=== PATIENT | male | born 1960 | race Caucasian/White ===

== ENCOUNTER 2017-08-26 17:57 | Emergency (ER) | payer MEDICARE, OTHER ==
[~2017-08-26] VITALS: Ht 177.8 cm; Wt 103.0 kg
[~2017-08-26 17:57] MED LIST: ACET325 PO; ADDE10 PO; ATOR20TA PO; CLON1TAB PO; DEPA125T PO; DULO20 PO; IBUP400T20 PO; LAMO150 PO; PRAZ1 PO; PROP40TA3 PO
[2017-08-26 18:00] VITALS: BP 176/88; PULSE 94; RESP 16; TEMP 98.6; O2SAT 96
[2017-08-26] MEDS ORDERED: CLON1 PO (18:22)
[2017-08-26] MEDS ORDERED: AMLO5TAB2 PO (18:22)
[2017-08-26] MEDS ORDERED: LAMO150 PO (18:22)
[2017-08-26] MEDS ORDERED: ATOR40TA16 PO (18:22)
[2017-08-26] MEDS ORDERED: LURA20TA PO (18:22)
[2017-08-26] MEDS ORDERED: PRAZ2CAP PO (18:22)
[2017-08-26] MEDS ORDERED: DULO20 PO (18:22)
[2017-08-26] MEDS ORDERED: GABA100C4 PO (18:22)
[2017-08-26] MEDS ORDERED: ADDE10XR PO (18:22)
--- NOTE | 2017-08-26 18:41 | RADRPT ---
EXAM DATE/TIME: 08/26/2017 18:17 [place] COMPARISON: No previous studies available for comparison. INDICATIONS : Pain in left hand after a fusion juncture grinder kicked back and hit hand. Pain is between 1st and 2nd metacarpals. MEDICAL HISTORY : None. SURGICAL HISTORY : None. ENCOUNTER: Initial ACUITY: 1 day PAIN SCORE: 2/10 LOCATION: Left hand. FINDINGS: Three view examination of the left hand demonstrates no soft tissue swelling, dislocation, or fractur e. The carpal bones appear intact. The interphalangeal and metacarpophalangeal joints are intact. Bony mineralization is normal. CONCLUSION: Unremarkable examination of the left hand. Cal Hansen MD on August 26, 2017 at 18:39 Board Certified Radiologist. This report was verified electronically.
--- NOTE | 2017-08-26 18:46 | PD ---
HPI Chief Complaint: Musculoskeletal Complaint Time Seen by Provider: 18:17 Travel History International Travel<30 days: No Contact w/Intl Traveler<30days: No Traveled to known affect area: No History of Present Illness HPI 86-year-old male here with left hand pain. While working with a hardboard grinder the metal grinding plate kicked back contusing the left hand. The cause a superficial abrasion to the dorsal aspect. He had immediate pain and swelling. He has full range of motion and normal sensation of all fingers. Area is painful to palpation of the dorsal aspect. Pain is alleviated with elevation and icing of the hand. Pain severity is moderate. PFSH Past Medical History Arthritis: Yes Bipolar Disorder: Yes Anxiety: Yes Depression: Yes Cardiovascular Problems: Yes High Cholesterol: Yes Chest Pain: Yes Diminished Hearing: No Endocrine: No Genitourinary: No Headaches: Yes Hypertension: Yes Immune Disorder: No Musculoskeletal: Yes Neurologic: Yes Psychiatric: Yes Reproductive: No Respiratory: No Migraines: No Tetanus Vaccination: > 5 Years Past Surgical History Thoracic Surgery: Yes (L5 ) Tonsillectomy: Yes Other Surgery: Yes (back surgery in 2003) Social History Alcohol Use: No Tobacco Use: No Substance Use: No Allergies-Medications (Allergen,Severity, Reaction): Coded Allergies: No Known Allergies (Unverified Adverse Reaction, Unknown, 08/26/17) Reported Meds & Prescriptions Reported Meds & Active Scripts Active Reported Amlodipine (Amlodipine Besylate) 5 Mg Tab 5 Mg PO DAILY Atorvastatin (Atorvastatin Calcium) 40 Mg Tab 40 Mg PO HS Gabapentin 100 Mg Cap 100 Mg PO BID Latuda (Lurasidone) 20 Mg Tab 20 Mg PO DAILY Cymbalta DR (Duloxetine HCl) 20 Mg Capdr 20 Mg PO HS Lamictal (Lamotrigine) 150 Mg Tab 150 Mg PO BID Klonopin (Clonazepam) 1 Mg Tab 1 Mg PO QID Adderall Xr 24 HR (Amphetamine/Dextroamphetamine) 10 Mg Cap 10 Mg PO DAILY Once daily in the morning. Prazosin (Prazosin HCl) 2 Mg Cap 2 Mg PO HS Review of Systems Except as stated in HPI: all other systems reviewed are Neg Physical Exam Narrative GENERAL: Alert male well-appearing. SKIN: Warm and dry. 2 superficial abrasions to the dorsal aspect of the left hand. HEAD: Normocephalic. EYES: No scleral icterus. No injection or drainage. NECK: Supple, trachea midline. No JVD or lymphadenopathy. MUSCULOSKELETAL: No cyanosis. Left hand: Notable swelling and tenderness to the dorsal across the first and second metatarsal. Two overlying superficial abrasions measuring approximately 5 cm's each. Patient is able to flex and extend all 5 digits and wrist. Neurovascularly intact distally. Brisk cap refill Data Data Last Documented VS Vital Signs Date Time Temp Pulse Resp B/P (MAP) Pulse Ox O2 Delivery O2 Flow Rate FiO2 08/26/17 18:00 98.6 94 16 176/88 (117) 96 Orders Orders Hand, Complete ([id number]) (08/26/17 ) [facility] Medical Decision Making Medical Screen Exam Complete: Yes Emergency Medical Condition: Yes Differential Diagnosis Hand fracture, contusion, hematoma, abrasions Narrative Course 56-year-old male here with contusion to the left hand. X-rays negative for fracture. The extremity is neurovascularly intact. The arm will be elevated in a splint. Patient is instructed to rest, ice, elevate. Return precautions were discussed. He was offered pain medication for which he declined. Diagnosis Primary Impression: Contusion of left hand Qualified Codes: S60.222A - Contusion of left hand, initial encounter Referrals: Primary Care Physician Additional Instructions: Rest, ice, elevate the extremity. Sling for comfort. Return to the emergency department if he developed increased pain, altered sensation or discoloration of the hand Disposition: 01 DISCHARGE HOME Condition: Stable Marizol Arellano Aug 26, 2017 18:46
[2017-08-26] MEDS ORDERED: TETANUS/DIPHTHERIA TOXOID ADULT 0.5 ML VIAL IM ONE (19:00)
== END 2017-08-26 19:24 | disposition home or self-care (01) ==
LOC: PHEFT 17:57
DX: S60.222A Contusion of left hand, initial encounter (principal); W31.1XXA Contact with metalworking machines, initial encounter; E78.00 Pure hypercholesterolemia, unspecified; F31.9 Bipolar disorder, unspecified; F41.9 Anxiety disorder, unspecified; I10 Essential (primary) hypertension; Z23 Encounter for immunization
CPT/HCPCS: 73130; 90471; 90714